=== PATIENT | male | born 1995 | race Caucasian/White ===

== ENCOUNTER 2024-05-01 07:45 | Outpatient (CLI) | payer OTHER ==
[2024-05-01 22:33] LABS: CHLAMYDIA TRACHOMATIS DNA NEGATIVE (NEGATIVE); NEISSERIA GONORRHOEAE DNA NEGATIVE (NEGATIVE); TRICHOMONAS VAGINALIS DNA NEGATIVE (NEGATIVE)
== END 2024-05-01 08:00 | disposition home or self-care (01) ==
LOC: LAB.N 07:45
PROVIDERS: ATTEND Physician Assistant Medical
DX: N34.2 Other urethritis (principal)
CPT/HCPCS: 87086; 87491; 87591; 87661